=== PATIENT | male | born 1985 | race Caucasian/White ===

== ENCOUNTER 2018-09-19 16:53 | Emergency (ER) | payer MEDICAID, SELFPAY ==
[2018-09-19 17:01] VITALS: BP 142/88; PULSE 71; RESP 20; TEMP 36.6; O2SAT 99
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
[2018-09-19] MEDS: Ketorolac 30 MG/ML VIAL IVP (17:21)
[2018-09-19] MEDS: Normal Saline 1,000 ML 150 ML IV (17:21)
[2018-09-19 17:27] LABS: Abs Immature Grans 0.19 k/cumm (0.0-0.09); Absolute Basophil Count 0.04 k/cumm (0.0-0.2); Absolute Eosinophil Count 0.34 k/cumm (0.0-0.7); Absolute Lymphocyte Count 3.73 k/cumm (1.2-3.4); Absolute Monocyte Count 0.81 k/cumm (0.11-0.7); Absolute Neutrophil Count 6.12 k/cumm (1.2-6.7); Basophils % 0.4; HCT 47.4 % (40.0-50.0); HGB 16.1 g/dL (13.5-17.5); Immature Grans % 1.7; Lymphocytes % 33.2; Mean Corpuscular Hemoglobin 30.1 pg (27.0-33.0); Mean Corpuscular Volume 88.6 fL (80-95); Mean Platelet Volume 9.7 fL (8.0-11.0); Monocytes % 7.2; Neutrophils % 54.5; Platelet Count 220 x1000/uL (130-400); RBC 5.35 m/cumm (4.50-6.00); RBC Distribution Width 13.3 % (11.8-14.1); White Blood Cell Count 11.23 k/cumm (4.4-10.8)
[2018-09-19] MEDS: Omnipaque 350 MG/ML 100 ML BTL IJ (17:40)
[2018-09-19 17:41] LABS: Albumin 4.2 g/dL (3.4-5.0); Alkaline Phosphatase 74 U/L (46-116); Anion Gap 9.1 mmol/L (3-11); BUN 17 mg/dL (7-18); Bilirubin, Total 0.3 mg/dL (0.2-1.0); CO2 26.9 mmol/L (21.0-32.0); CREATININE 1.14 mg/dL (0.70-1.30); Calcium 8.6 mg/dL (8.5-10.1); Chloride 100 mmol/L (98-107); Glucose 121 mg/dL (70-100); Potassium 3.9 mmol/L (3.5-5.1); Sodium 136 mmol/L (136-145)
[2018-09-19] MEDS: Normal Saline Flush 10 ML SYR IVP (17:41)
[2018-09-19 17:54] LABS: ALT 333 U/L (12-78); AST 203 U/L (15-37)
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
== END 2018-09-19 18:53 | disposition home or self-care (01) ==
PROVIDERS: Emergency Provider Emergency Medicine; PCP Internal Medicine
DX: S20.211A Contusion of right front wall of thorax, initial encounter (principal); S51.011A Laceration without foreign body of right elbow, initial encounter; S60.511A Abrasion of right hand, initial encounter; R10.9 Unspecified abdominal pain; V86.55XA Driver of 3- or 4- wheeled all-terrain vehicle (ATV) injured in nontraffic accident, initial encounter
CPT/HCPCS: 12002; 36415; 74177; 80053; 96361; 96374; 96375; 99285; 70450; 71260; 72125; 73080; 73110; 85025; 99284; J1885; J3490

== ENCOUNTER 2018-10-01 12:56 | Emergency (ER) | payer MEDICAID, SELFPAY ==
[2018-10-01 12:59] VITALS: BP 142/71; PULSE 62; RESP 16; TEMP 36.6; O2SAT 95
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
[2018-10-01] MEDS: Albuterol HFA 8 GM 60 PUFF INH IH (13:36)
[2018-10-01] MEDS: Inhaler, Assist Device 1 EACH MC (13:37)
== END 2018-10-01 13:40 | disposition home or self-care (01) ==
PROVIDERS: Emergency Provider Physician Assistant; PCP Internal Medicine
DX: J20.9 Acute bronchitis, unspecified (principal); S51.011D Laceration without foreign body of right elbow, subsequent encounter; X58.XXXD Exposure to other specified factors, subsequent encounter; Z48.02 Encounter for removal of sutures
CPT/HCPCS: 99283

== ENCOUNTER 2019-03-15 18:13 | Outpatient (REF) | payer MEDICAID, SELFPAY ==
[2019-03-15 20:57] LABS: HCT 47.5 % (40.0-50.0); HGB 15.9 g/dL (13.5-17.5); Mean Corp. HGB Concentration 33.5 g/dL (32.0-36.0); Mean Corpuscular Hemoglobin 30.1 pg (27.0-33.0); Mean Corpuscular Volume 89.8 fL (80-95); Mean Platelet Volume 10.1 fL (8.0-11.0); Platelet Count 215 x1000/uL (130-400); RBC 5.29 m/cumm (4.50-6.00); RBC Distribution Width 13.6 % (11.8-14.1); White Blood Cell Count 10.12 k/cumm (4.4-10.8)
[2019-03-15 22:06] LABS: ALT 109 U/L (16-63); Albumin 4.6 g/dL (3.4-5.0); Alkaline Phosphatase 87 U/L (46-116); Anion Gap 10.9 mmol/L (3-11); BUN 20 mg/dL (7-18); Bilirubin, Total 0.3 mg/dL (0.2-1.0); CO2 27.1 mmol/L (21.0-32.0); CREATININE 1.12 mg/dL (0.70-1.30); Calcium 9.8 mg/dL (8.5-10.1); Chloride 101 mmol/L (98-107); Cholesterol 289 mg/dL (50-200); Glucose 94 mg/dL (70-100); HDL Cholesterol 27 mg/dL (40-60); Potassium 4.2 mmol/L (3.5-5.1); Sodium 139 mmol/L (136-145); Total Protein 8.2 g/dL (6.4-8.2); Triglyceride 974 mg/dL (30-150)
[2019-03-15 22:29] LABS: LDL CHOLESTEROL 100 mg/dL (<100)
[2019-03-15 23:12] LABS: AST 52 U/L (15-37)
[2019-03-17 11:10] LABS: Hep B Core Antibody Negative (NEGAT)
[2019-03-17 11:50] LABS: Hepatitis B Surface Ag Negative (NEGAT)
== END 2019-03-15 18:33 ==
LOC: NCHCN 18:13
PROVIDERS: PCP Internal Medicine; Visit Provider Nurse Practitioner Family
DX: R03.0 Elevated blood-pressure reading, without diagnosis of hypertension (principal); R74.0 Nonspecific elevation of levels of transaminase and lactic acid dehydrogenase [LDH]; F10.10 Alcohol abuse, uncomplicated
CPT/HCPCS: 80053; 80061; 83721; 85027; 86704; 87340; 85610

== ENCOUNTER 2019-04-19 15:58 | Outpatient (CLI) | payer MEDICAID, SELFPAY ==
[2019-04-19 16:49] LABS: Prothrombin Time 10.3 sec (9.3-11.0)
[2019-04-21 10:59] LABS: Syphilis Serology (RPR) Negative (Negative)
[2019-04-21 11:17] LABS: HIV-1/2 Ag & Ab Screen Negative (NEGAT)
[2019-04-22 12:30] LABS: HSV Type 1 Ab, IgG Positive; HSV Type 2 Ab, IgG Negative
== END 2019-04-19 16:18 ==
PROVIDERS: Nurse Practitioner Family; PCP Family Medicine; Visit Provider Family Medicine
DX: F10.10 Alcohol abuse, uncomplicated (principal); R03.0 Elevated blood-pressure reading, without diagnosis of hypertension; R74.0 Nonspecific elevation of levels of transaminase and lactic acid dehydrogenase [LDH]; Z20.2 Contact with and (suspected) exposure to infections with a predominantly sexual mode of transmission; Z11.4 Encounter for screening for human immunodeficiency virus [HIV]; Z11.59 Encounter for screening for other viral diseases
CPT/HCPCS: 36415; 87389; 85610; 86592; 86695; 86696

== ENCOUNTER 2020-11-01 02:13 | Outpatient (CLI) | payer MEDICAID, SELFPAY ==
[2020-11-01 10:47] LABS: ESR 6 mm//hr (0-15)
[2020-11-01 10:48] LABS: Absolute Basophil Count 0.05 10^3/uL (0.0-0.2); Absolute Eosinophil Count 0.29 10^3/uL (0.0-0.7); Absolute Lymphocyte Count 2.21 10^3/uL (1.2-3.4); Absolute Monocyte Count 0.54 10^3/uL (0.1-0.8); Absolute Neutrophil Count 4.18 10^3/uL (1.2-6.7); Basophils % 0.7; Eosinophils % 3.9; HCT 51.8 % (40.0-50.0); HGB 17.5 g/dL (13.5-17.5); Immature Grans % 1.4; MCHC 33.8 % (32.0-36.0); MCV 88.7 fL (80-95); MPV 9.3 fL (8.0-11.0); Monocytes % 7.3; Neutrophils % 56.7; Nucleated RBC 0 %; Platelet Count 248 10^3/uL (130-400); RBC 5.84 10^6/uL (4.36-5.78); RDW 12.3 % (11.8-14.1); WBC 7.37 10^3/uL (4.4-10.8)
[2020-11-01 11:49] LABS: ALT 120 U/L (16-63); AST 37 U/L (15-37); Albumin 4.6 g/dL (3.4-5.0); Alkaline Phosphatase 87 U/L (46-116); Anion Gap 12.2 mmol/L (3-11); BUN 18 mg/dL (7-18); Bilirubin, Total 0.5 mg/dL (0.2-1.0); C-Reactive Protein 0.06 mg/dL (0.0-0.3); CO2 27.8 mmol/L (21.0-32.0); CREATININE 1.2 mg/dL (0.70-1.30); Calcium 9.7 mg/dL (8.5-10.1); Chloride 100 mmol/L (98-107); Glucose 128 mg/dL (74-106); Potassium 4.4 mmol/L (3.5-5.1); Sodium 140 mmol/L (136-145); TSH (W/Ref FT4) 1.37 uIU/mL (0.36-3.74); Total Protein 8.3 g/dL (6.4-8.2)
[2020-11-02 11:03] LABS: Lyme Ab w Rflx to Lyme Confirm Negative (Negative)
== END 2020-11-01 02:14 | disposition home or self-care (01) ==
LOC: LBO 02:13
PROVIDERS: PCP Family Medicine; Visit Provider Family Medicine
DX: R53.83 Other fatigue (principal); R94.5 Abnormal results of liver function studies
CPT/HCPCS: 36415; 80053; 85652; 84443; 85025; 86140; 86618